=== PATIENT | male | born 1980 ===

== ENCOUNTER 2021-12-29 16:08 | Emergency (ER) | payer MEDICAID ==
[~2021-12-29] VITALS: Ht 182.9 cm; Wt 81.8 kg
--- NOTE | 2021-12-29 16:38 | NUR ---
not in lobby #1
[2021-12-29 17:20] VITALS: BP 121/74
--- NOTE | 2021-12-29 19:17 | NUR ---
not in lobby #2
== END 2021-12-29 19:31 | disposition left against medical advice (07) ==
LOC: ER 16:10
DX: L02.413 Cutaneous abscess of right upper limb (principal); Z53.21 Procedure and treatment not carried out due to patient leaving prior to being seen by health care provider